=== PATIENT | male | born 1950 | race Caucasian/White ===

== ENCOUNTER 2022-11-16 14:08 | Outpatient (CLI) | payer MEDICARE, OTHER, SELFPAY | END 2022-11-20 09:42 | disposition home or self-care (01) | LOC: PHYS 14:10 | PROVIDERS: Absent Provider Internal Medicine; Family Provider Internal Medicine; PCP Internal Medicine; Referring Provider Nurse Practitioner; Visit Provider Nurse Practitioner | DX: G56.01 Carpal tunnel syndrome, right upper limb (principal); M54.12 Radiculopathy, cervical region | CPT/HCPCS: 95886; 95910 ==